=== PATIENT | female | born 1980 | race Caucasian/White ===

== ENCOUNTER 2020-04-13 09:43 | Outpatient (REF) | payer OTHER, SELFPAY ==
--- NOTE | 2020-04-13 | XR_ITS ---
EXAMINATION: XR CHEST CLINICAL INFORMATION: Right-sided chest pain COMPARISON: Previous chest CTA December 2018 TECHNIQUE: 2 views of the chest were obtained. FINDINGS: The cardiac and mediastinal contours are normal. The lungs are clear. There is no pleural effusion or pneumothorax. There is curvature of the thoracic spine to the right. XR/XR chest 2V IMPRESSION: No evidence for acute disease in the chest.
== END 2020-04-13 09:44 | disposition home or self-care (01) ==
LOC: HO.HMGCX 09:43
PROVIDERS: Visit Provider Family Medicine Adult Medicine
DX: R07.81 Pleurodynia (principal)
CPT/HCPCS: 71046

== ENCOUNTER 2021-03-29 13:25 | Outpatient (REF) | payer OTHER, SELFPAY ==
--- NOTE | ~2021-03-29 | XR_ITS ---
EXAMINATION: XR CHEST CLINICAL INFORMATION: Acute upper respiratory fraction, J06.9 COMPARISON: Chest radiographs 04/13/2020 TECHNIQUE: 2 views of the chest were obtained. FINDINGS: The lungs are clear. There is no airspace consolidation or groundglass opacity or effusion. The costophrenic sulci are clear. The heart is normal in size. The vascularity is normal. No hyperinflation. The hilar and mediastinal contours are normal. No acute bony abnormality. Mild dextrocurvature thoracic spine again present. XR/XR chest 2V IMPRESSION: Unremarkable examination.
== END 2021-03-29 13:26 | disposition home or self-care (01) ==
LOC: HO.XRAY 13:25
PROVIDERS: PCP Internal Medicine; Visit Provider Family Medicine Adult Medicine
DX: J06.9 Acute upper respiratory infection, unspecified (principal)
CPT/HCPCS: 71046